=== PATIENT | male | born 1970 | race Caucasian/White ===

== ENCOUNTER → 2021-01-06 | Outpatient (CLI) | payer BC ==
[~2021-01-06] MED LIST: ASPIRIN325 PO; CELEXA10 MG PO; LIPITOR 20 MG T20 M1 PO; MULTIVITAMINS1 EAC7 PO; XANAX 0.5 MG0.5 M1 PO
== END ==
LOC: LAB 12:30
PROVIDERS: ATTEND Anesthesiology
DX: Z01.812 Encounter for preprocedural laboratory examination (principal); Z20.822 Contact with and (suspected) exposure to COVID-19